=== PATIENT | male | born 1980 | race Caucasian/White ===

== ENCOUNTER 2017-03-29 05:05 | Day surgery (SDC) | payer BC ==
[~2017-03-29] VITALS: Ht 175.3 cm; Wt 90.7 kg
--- NOTE | ~2017-03-29 | OP ---
PATIENT NAME: LACEY GAUTHIER MEDICAL RECORD: [id number] :82 LOCATION:[facility] ADMISSION DATE: SURGEON: RICK HUGHES MD DATE OF OPERATION: 03/29/2017 PREOPERATIVE DIAGNOSES: Impingement syndrome of the left shoulder and acromioclavicular arthritis of the left shoulder. POSTOPERATIVE DIAGNOSES: Impingement syndrome of the left shoulder and acromioclavicular arthritis of the left shoulder. PROCEDURES: 1. Arthroscopic distal clavicle excision done through separate incision -- 1 cm. 2. Arthroscopic subacromial decompression with acromioplasty and bursectomy. SURGEON: Rick Hughes MD ANESTHESIA: General. INTRAOPERATIVE COMPLICATIONS: None. SUMMARY OF PATHOLOGIC FINDINGS: The patient had some mild fraying of the labrum; however, obviously not clinically relevant. 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 OPERATIVE SUMMARY IN DETAIL: After obtaining the appropriate preoperative orthopedic surgery consent as well as anesthetic consultation, evaluation and clearance, the patient was brought to the operating room and placed on the operating table in supine position. After general laryngeal mask airway was administered, the patient was placed in the right lateral decubitus position. All pressure points were well padded to include down leg peroneal pad as well as axillary roll. The patient was held firmly to the operating table using the vacuum pack suction system. Left upper extremity and shoulder were then prepped and draped in a routine sterile fashion. The arm was held in the Arthrex traction device at 30 degrees of forward flexion, 30 degrees of abduction with 10 pounds of traction laterally. Arthroscopy was established in the glenohumeral joint from a posterior portal. Anterior portal was established in the anterior safe interval. Diagnostic arthroscopy did reveal that the patient had some mild labral fraying. No rotator cuff tear was noted in the labrum, biceps tendon grossly intact without substantial biceps tendonitis. Attention was then turned to the subacromial space. The [place] tissue ablation system was utilized to denude the undersurface of the acromion of all soft tissue elements and released the coracoacromial ligament. A 5-0 barrel bur was then used to perform acromioplasty at the level of acromioclavicular joint and through a separate arthroscopic portal anteriorly distal clavicle was taken down for 1 cm. Lastly all bursal tissues were taken down anteriorly, laterally, and posteriorly. The rotator cuff was intact with only mild attritional changes of the supraspinatus tendon at its insertion point. Having completed this, arthroscopy portal was closed in routine interrupted fashion using 4-0 Prolene. Sterile dressings were applied. The patient was awakened and taken to the recovery room in stable condition. All final needle and sponge counts were correct. OPERATIVE REPORT [id number] LACEY GAUTHIER TRANSINT:[id number] Voice Confirmation ID: [id number] DOCUMENT ID: [id number] SAUL SAWYER, RICK RYAN at 1209 CC: [id number] DICTATION DATE: 03/29/17 0828 MICROFILMING DOCUMENT PREPARER: 03/29/17 1137 [facility] 03/29/17 [id number] [place] [address]
[~2017-03-29 05:05] MED LIST: TYLENOL W/CODEI1 TAB PO; ZANAFLEX4 MG
[2017-03-29 06:31] VITALS: BP 114/73; Ht 175.3 cm; Wt 90.7 kg
[2017-03-29] MEDS ORDERED: HYDROCODONE-APA1 TAB PO (08:25)
== END 2017-03-29 10:15 | disposition home or self-care (01) ==
LOC: D.OPS 05:05 → D.PAN 07:30 → D.OPS 07:30
DX: M75.42 Impingement syndrome of left shoulder (principal); M13.812 Other specified arthritis, left shoulder; M75.52 Bursitis of left shoulder; M94.212 Chondromalacia, left shoulder; Z01.812 Encounter for preprocedural laboratory examination